=== PATIENT | female | born 1955 | race African-American/Black ===

== ENCOUNTER 2017-06-26 08:57 | Emergency (ER) | payer OTHER ==
[2017-06-26 09:27] LABS: #Basophils 0.1 thou/uL (0.0-0.2); #Eosinphils 0.3 thou/uL (0.0-0.7); #Lymphocytes 3.2 thou/uL (1.20-3.40); #Monocytes 0.6 thou/uL (0.11-0.59); #Neutrophils 2.7 thou/uL (1.40-6.50); %Basophils 1.4 % (0.0-1.0); %Eosinophils 4.1 % (0.0-10.0); %Lymphocytes 46.3 % (21.0-51.0); %Monocytes 8.5 % (0.0-10.0); %Neutrophils 39.7 % (42.0-75.0); Hemoglobin 13.6 g/dL (12.0-16.0); Mean Corpuscular Hemoglobin 28.9 pg (27.0-31.0); Mean Corpuscular Volume 87.6 fl (81.0-99.0); Mean Platelet Volume 7.5 fL (7.4-10.4); Platelet Count 327 thou/uL (130-400); RBC Distribution Width 14.4 % (11.5-14.5); Red Blood Cell (RBC) Count 4.72 mill/uL (4.20-5.40); White Blood Cell (WBC) Count 6.8 thou/uL (4.8-10.8)
--- NOTE | 2017-06-26 09:32 | RAD ---
PORTABLE AP CHEST X-RAY: 06/26/2017 HISTORY: Chest pain that started this morning. COMPARISON: 01/09/2013 FINDINGS: The cardiac silhouette and pulmonary vasculature are within normal limits. The lungs remain clear. There has been no interval change from the prior study. IMPRESSION: No acute cardiopulmonary process. POS: [facility]
[2017-06-26 09:48] LABS: CKMB 3.9 ng/mL (0-6.6); Troponin I Less than 0.010 ng/mL (< 0.028)
[2017-06-26 10:30] LABS: Albumin 4.1 g/dL (3.4-4.8)
[2017-06-26] MEDS ORDERED: Aspirin 325 MG TAB ONE (10:30)
[2017-06-26 10:31] LABS: Chloride 103 mmol/L (98-107); Potassium 4.1 mmol/L (3.5-5.1); Sodium 138 mmol/L (136-145)
[2017-06-26 10:32] LABS: Calcium 9.9 mg/dL (7.8-10.44); Glucose 90 mg/dL (80-115)
[2017-06-26 10:33] LABS: Globulin 3.7 g/dL (2.4-3.5); Protein, Total 7.8 g/dL (6.0-8.3)
[2017-06-26 10:34] LABS: Anion Gap 13 mmol/L (10-20); Bilirubin, Total 0.2 mg/dL (0.2-1.2); Carbon Dioxide 26 mmol/L (23-31)
[2017-06-26 10:35] LABS: Alkaline Phosphatase 95 U/L (40-150)
[2017-06-26 10:36] LABS: BUN (Urea Nitrogen) 16 mg/dL (9.8-20.1); Calc. Creatinine Clearance 0 mL/min (70-130); Estimated GFR-MDRD Greater than 90
[2017-06-26 10:37] LABS: AST (SGOT) 18 U/L (5-34)
[2017-06-26 10:38] LABS: ALT (SGPT) 20 U/L (8-55); CK (CPK) 402 U/L (29-168); Lipase 24 U/L (8-78)
== END 2017-06-26 11:00 | disposition home or self-care (01) ==
LOC: ERS 08:57
DX: R07.9 Chest pain, unspecified (principal); I10 Essential (primary) hypertension; E66.9 Obesity, unspecified; Z79.82 Long term (current) use of aspirin; Z79.899 Other long term (current) drug therapy
CPT/HCPCS: 36415; 71045; 80053; 82550; 82553; 83690; 84484; 85025; 93005

== ENCOUNTER 2017-10-13 08:43 | Outpatient (CLI) | payer OTHER | END 2017-10-13 08:44 | disposition home or self-care (01) | LOC: BICMAMMO 08:43 | PROVIDERS: ATTEND Internal Medicine | DX: Z12.31 Encounter for screening mammogram for malignant neoplasm of breast (principal); Z80.3 Family history of malignant neoplasm of breast | CPT/HCPCS: 77063; 77067 ==

== ENCOUNTER 2019-02-08 08:50 | Outpatient (CLI) | payer OTHER ==
--- NOTE | 2019-02-08 09:43 | MMO ---
Bilateral MAMMO Bilat Screen [facility]. CLINICAL HISTORY: Patient is 63 years old and is seen for screening. The patient has the following family history of breast cancer: daughter. The patient has no personal history of cancer. VIEWS: The views performed were: bilateral craniocaudal with tomosynthesis and bilateral mediolateral oblique with tomosynthesis. FILMS COMPARED: The present examination has been compared to prior imaging studies performed at [facility] on 07/14/2014, 08/12/2015, 10/07/2016 and 10/13/2017. This study has been interpreted with the assistance of computer-aided detection. MAMMOGRAM FINDINGS: The breasts are almost entirely fat. There are no suspicious masses, suspicious calcifications, or new areas of architectural distortion. IMPRESSION: THERE IS NO MAMMOGRAPHIC EVIDENCE OF MALIGNANCY. A ROUTINE FOLLOW-UP MAMMOGRAM IN 1 YEAR IS RECOMMENDED. THE RESULTS OF THIS EXAM WERE SENT TO THE PATIENT. ACR BI-RADS Category 1 - Negative MAMMOGRAPHY NOTE: 1. A negative mammogram report should not delay a biopsy if a dominant of clinically suspicious mass is present. 2. Approximately 10% to 15% of breast cancers are not detected by mammography. 3. Adenosis and dense breasts may obscure an underlying neoplasm. Reported by: MARIZOL GAXIOLA MD Electonically Signed: [id number]
== END 2019-02-08 08:51 | disposition home or self-care (01) ==
LOC: BICMAMMO 08:50
PROVIDERS: ATTEND Internal Medicine
DX: Z12.31 Encounter for screening mammogram for malignant neoplasm of breast (principal); Z80.3 Family history of malignant neoplasm of breast
CPT/HCPCS: 77063; 77067

== ENCOUNTER 2020-02-21 11:50 | Outpatient (CLI) | payer OTHER ==
--- NOTE | 2020-02-21 13:49 | MMO ---
Bilateral MAMMO Bilat Screen [facility]. CLINICAL HISTORY: Patient is 64 years old and is seen for screening. The patient has the following family history of breast cancer: daughter. The patient has no personal history of cancer. VIEWS: The views performed were: bilateral craniocaudal with tomosynthesis and bilateral mediolateral oblique with tomosynthesis. FILMS COMPARED: The present examination has been compared to prior imaging studies performed at [facility] on 08/12/2015, 10/07/2016, 10/13/2017 and 02/08/2019. This study has been interpreted with the assistance of computer-aided detection. MAMMOGRAM FINDINGS: The breasts are almost entirely fat. There are no suspicious masses, suspicious calcifications, or new areas of architectural distortion. IMPRESSION: THERE IS NO MAMMOGRAPHIC EVIDENCE OF MALIGNANCY. A ROUTINE FOLLOW-UP MAMMOGRAM IN 1 YEAR IS RECOMMENDED. THE RESULTS OF THIS EXAM WERE SENT TO THE PATIENT. ACR BI-RADS Category 1 - Negative MAMMOGRAPHY NOTE: 1. A negative mammogram report should not delay a biopsy if a dominant of clinically suspicious mass is present. 2. Approximately 10% to 15% of breast cancers are not detected by mammography. 3. Adenosis and dense breasts may obscure an underlying neoplasm. Reported by: DENIS SOTOMAYOR MD Electonically Signed: [id number]
== END 2020-02-21 11:51 | disposition home or self-care (01) ==
LOC: BICMAMMO 11:50
PROVIDERS: ATTEND Internal Medicine
DX: Z12.31 Encounter for screening mammogram for malignant neoplasm of breast (principal); Z80.3 Family history of malignant neoplasm of breast
CPT/HCPCS: 77063; 77067

== ENCOUNTER 2021-04-09 09:09 | Outpatient (CLI) | payer MEDICARE | END 2021-04-09 09:10 | disposition home or self-care (01) | LOC: BICMAMMO 09:09 | PROVIDERS: ATTEND Internal Medicine | DX: Z12.31 Encounter for screening mammogram for malignant neoplasm of breast (principal); Z13.820 Encounter for screening for osteoporosis; Z78.0 Asymptomatic menopausal state; Z80.3 Family history of malignant neoplasm of breast | CPT/HCPCS: 77063; 77067; 77080 ==

== ENCOUNTER 2022-05-13 08:54 | Outpatient (CLI) | payer MEDICARE | END 2022-05-13 08:55 | disposition home or self-care (01) | LOC: BICMAMMO 08:54 | PROVIDERS: ATTEND Internal Medicine | DX: Z12.31 Encounter for screening mammogram for malignant neoplasm of breast (principal); Z80.3 Family history of malignant neoplasm of breast | CPT/HCPCS: 77063; 77067 ==

== ENCOUNTER 2023-06-16 07:55 | Outpatient (CLI) | payer MEDICARE | END 2023-06-16 07:56 | disposition home or self-care (01) | LOC: BICMAMMO 07:55 | PROVIDERS: ATTEND Internal Medicine | DX: Z12.31 Encounter for screening mammogram for malignant neoplasm of breast (principal); Z80.3 Family history of malignant neoplasm of breast | CPT/HCPCS: 77063; 77067 ==